=== PATIENT | female | born 1990 | race Caucasian/White ===

== ENCOUNTER 2022-01-19 15:25 | Emergency (ER) | payer MEDICAID ==
[~2022-01-19] VITALS: Ht 160 cm; Wt 62.1 kg
--- NOTE | 2022-01-19 15:45 | NUR ---
recieved pt 31 yrs female came from home c/o genralized bady pain 06/05 hx
[2022-01-19] MEDS ORDERED: KETOROLAC TROMETHAMINE INJ 30 MG/ML VIAL IV ONE (16:00)
[2022-01-19] MEDS ORDERED: IV NS 0.9% 1,000 ML IV ONE ×2 (16:00→17:30)
[2022-01-19] MEDS ORDERED: HYDROMORPHONE MDV 1 MG in IV D5W 50 ML IV PRN (16:00)
[2022-01-19] MEDS ORDERED: diphenhydrAMINE HCL 50 MG/ML VIAL IV ONE (16:00)
--- NOTE | 2022-01-19 16:00 | NUR ---
PT DINESES ANY POSSIBLTY OF PREGNCEY PT ON HERE PERIOD AND I HAVE IUD
[2022-01-19] MEDS ORDERED: diphenhydrAMINE HCL 50 MG/ML VIAL ONE (16:06)
[2022-01-19] MEDS ORDERED: HYDROMORPHONE 1 MG/1 ML DISP.SYRIN ONE ×2 (16:07→19:43)
[2022-01-19] MEDS ORDERED: KETOROLAC TROMETHAMINE 15 MG/ML VIAL ONE (16:07)
[2022-01-19 16:11] LABS: BASOPHILS # (AUTO) 0.2 K/uL (0.0-0.2); BASOPHILS % (AUTO) 1.2 % (0.0-2.0); EOSINOPHILS % (AUTO) 2.7 % (0.0-6.0); HEMATOCRIT 29 % (33-45); HEMOGLOBIN 9.5 g/dL (11.5-14.8); LYMPHOCYTES # (AUTO) 6.1 K/uL (0.8-4.8); LYMPHOCYTES % (AUTO) 43.5 % (20.0-44.0); MEAN CORPUSCULAR HGB CONC 33 g/dl (31.0-36.0); MEAN CORPUSCULAR VOLUME 90 fL (82-100); MONOCYTES # (AUTO) 0.9 K/uL (0.1-1.30); MONOCYTES % (AUTO) 6.4 % (2.0-12.0); NEUTROPHILS # (AUTO) 6.5 K/uL (1.8-8.9); NEUTROPHILS % (AUTO) 46.2 % (43.0-81.0); RED BLOOD CELL COUNT(AUTO) 3.19 MIL/uL (4.0-5.2); WHITE BLOOD COUNT (AUTO) 14.1 K/uL (4.3-11.0)
--- NOTE | 2022-01-19 16:15 | NUR ---
BLOOD DROW AND SENDE TO LAB
[2022-01-19 16:20] LABS: CALCIUM, SERUM 8.9 mg/dL (8.5-10.1); CREATININE 0.6 mg/dL (0.6-1.3); POTASSIUM 3.8 mmol/L (3.5-5.1)
[2022-01-19] MEDS ORDERED: HYDROMORPHONE 1 MG/1 ML DISP.SYRIN IV ONE ×3 (16:30→20:00)
--- NOTE | 2022-01-19 17:00 | NUR ---
X RAY DONE AT BED SIDE
[2022-01-19 17:06] LABS: PLATELET COUNT (AUTO) 407 K/uL (150-450)
[2022-01-19] MEDS ORDERED: [UNRECOGNIZED DRUG - CODE] PO (17:42)
[2022-01-19] MEDS ORDERED: BUPR100T6 PO (17:42)
[2022-01-19] MEDS ORDERED: FOLI0.8C PO (17:42)
[2022-01-19] MEDS ORDERED: SERT50TA PO (17:42)
--- NOTE | 2022-01-19 18:00 | NUR ---
APPLE NORMAN TO LAB PT VODING 600ML CLEARE YELLOW COLLOR
--- NOTE | 2022-01-19 18:12 | NUR ---
CALLED [facility] [phone] DR. CHAPARRO WILL CALL BACK.
--- NOTE | 2022-01-19 19:13 | NUR ---
NOTEFY DR. ROGERS PAIN LEVEL 9/10 2ND LT NS INFUSED AND PATENT
--- NOTE | 2022-01-19 19:47 | NUR ---
HAND OFF TO ARIELA VEGA
--- NOTE | 2022-01-19 19:47 | NUR ---
PT ACCEPTED TO [facility] BY DR MOJICA. # FOR REPORT [phone]. [facility] ETA [phone]
--- NOTE | 2022-01-19 20:02 | NUR ---
REPORT GIVEN TO AUGUSTINA AT [facility]
--- NOTE | 2022-01-19 20:45 | NUR ---
AMBULANCE TRANSPORTATION AT BEDSIDE FOR PICKUP.
[2022-01-19 20:52] VITALS: BP 135/82
--- NOTE | 2022-01-19 20:55 | NUR ---
PT PICKED UP BY [facility] [address] IN STABLE CONDITION. V/S STABLE AT TIME OF TRANSFER. TRANSFER FORM INCLUDED IN PATIENT CHART.
== END 2022-01-19 21:23 | disposition short-term general hospital (02) ==
LOC: ER 15:38
DX: D57.00 Hb-SS disease with crisis, unspecified (principal); D64.9 Anemia, unspecified; R70.1 Abnormal plasma viscosity; Z20.822 Contact with and (suspected) exposure to COVID-19; Z79.899 Other long term (current) drug therapy
CPT/HCPCS: 36415; 71045; 80048; 85025; 85045; 87426; 93005; 96361; 96374; 96375; 96376; 99285; C9803; J1170 ×2; J1200; J1885; J7030 ×2; J7060